=== PATIENT | male | born 1930 | race Caucasian/White ===

== ENCOUNTER 2018-06-20 14:17 | Outpatient (CLI) | payer MEDICARE, OTHER | END 2018-06-20 23:59 | disposition home or self-care (01) | LOC: CARD 14:17 | PROVIDERS: ATTEND Nurse Practitioner | DX: J44.9 Chronic obstructive pulmonary disease, unspecified (principal) | CPT/HCPCS: 94060; 94618; 94726; 94729 ==

== ENCOUNTER 2019-03-23 06:53 | Emergency (ER) | payer MEDICARE, OTHER ==
[~2019-03-23] VITALS: Ht 175.3 cm; Wt 65.0 kg
--- NOTE | 2019-03-23 07:23 | NUR ---
PT WITH C/O "TINGING" FEELING IN CHEST FOR APPROX 2 WEEKS, HAD GOTTON WORSE TODAY, PT DENIES SOB, TRAUMA. PT TO CARD MONITOR, BP, CONT PULSE OX, ER PROVIDER IN TO EVAL PT, ORDERS RECIEVED.
[2019-03-23 07:42] LABS: BASOPHILS # (AUTO) 0.06 x10^3/uL (0-0.1); BASOPHILS % (AUTO) 1 % (0-1); EOSINOPHILS # (AUTO) 0.41 x10^3/uL (0-0.4); EOSINOPHILS % (AUTO) 8 % (1-7); LYMPHOCYTES % (AUTO) 32 % (22-44); MD NO; MEAN CORPUSCULAR HGB CONC 33.2 g/dL (33.2-36.2); MEAN CORPUSCULAR VOLUME 108.4 fL (81-97); MEAN PLATELET VOLUME 7.8 fL (7.4-10.4); MONOCYTES # (AUTO) 0.61 x10^3/uL (0.2-0.8); MONOCYTES % (AUTO) 12 % (2-9); NEUTROPHILS # (AUTO) 2.41 x10^3/uL (1.8-6.8); NEUTROPHILS % (AUTO) 47 % (42-75); PLATELET COUNT 215 x10^3/uL (130-400); RED BLOOD COUNT 3.39 x10^6/uL (4.38-5.82); RED CELL DISTRIBUTION WIDTH 14.5 % (9.4-14.8)
[2019-03-23 07:54] LABS: ALBUMIN 2.3 g/dL (3.4-5.0); ANION GAP 5 mmol/L (5-15); CALCIUM 8.4 mg/dL (8.5-10.1); CHLORIDE 111 mmol/L (98-107); CREATININE 1.57 mg/dL (0.7-1.3)
[2019-03-23 07:57] LABS: TROPONIN I < 0.015 ng/mL (0.000-0.045)
--- NOTE | 2019-03-23 08:20 | NUR ---
ERMD IN TO EVAL PT, PT TO GO FOR ABDOMINAL US D/T HX OF AAA. NAD NOTED AT THIS TIME, SON AT BEDSIDE
[2019-03-23 08:47] VITALS: BP 146/83
--- NOTE | 2019-03-23 09:47 | NUR ---
ERMD IN TO UPDATE PT ON TEST RESULTS AND POC, PT TO BE DISCHARGED HOME.
== END 2019-03-23 10:18 | disposition home or self-care (01) ==
LOC: ED 09:45
DX: M94.0 Chondrocostal junction syndrome [Tietze] (principal); Z87.891 Personal history of nicotine dependence
CPT/HCPCS: 36415; 71045; 80048; 82040; 83880; 84484; 85025; 93005; 93979; 99284

== ENCOUNTER 2020-09-06 10:51 | Emergency (ER) | payer MEDICARE, OTHER ==
[~2020-09-06] VITALS: Ht 177.8 cm; Wt 68.0 kg
[~2020-09-06 10:51] MED LIST: ACET325T26 PO; ASPI81TA45 PO; GABA-826 PO
--- NOTE | 2020-09-06 11:06 | NUR ---
PT TO ROOM FROM TRIAGE, CONNECTED TO MONITORS. DAUGHTER AT BS. MAXIMILIAN. CALL LIGHT WITHIN REACH
--- NOTE | 2020-09-06 11:18 | NUR ---
PA AT BS
--- NOTE | 2020-09-06 11:47 | NUR ---
PT LAYING ON MAXIMILIAN CASTELLANOS/JENNA. DAUGHTER AT BS. CALL LIGHT WITHIN REACH
--- NOTE | 2020-09-06 12:38 | NUR ---
PT RESTING IN BED, VSS, DAUGHTER AT BEDSIDE, NO NEEDS AT THIS TIME AWAITIG US RESULTS.
--- NOTE | 2020-09-06 13:30 | NUR ---
PT RESTING ON JASMIN NADN/VSS. CALL LIGHT WITHIN REACH. DAUGHTER AT BS. NO NEEDS AT THIS TIME
--- NOTE | 2020-09-06 14:05 | NUR ---
PA AT BS
--- NOTE | 2020-09-06 14:10 | NUR ---
PT RESTING ON GURNEY, NADN/VSS. COMFORT MEASURES PROVIDED. DAUGHTER AT BS. CALL LIGHT WITHIN REACH
[2020-09-06 14:26] LABS: BASOPHILS % (AUTO) 1 % (0-1); EOSINOPHILS % (AUTO) 3 % (1-7); LYMPHOCYTES % (AUTO) 25 % (22-44); MEAN CORPUSCULAR HEMOGLOBIN 36.5 pg (27.5-34.5); MEAN CORPUSCULAR HGB CONC 34.4 g/dL (33.2-36.2); MEAN PLATELET VOLUME 7.6 fL (7.4-10.4); MONOCYTES % (AUTO) 10 % (2-9); NEUTROPHILS % (AUTO) 61 % (42-75); PLATELET COUNT 193 x10^3/uL (130-400); RED BLOOD COUNT 3.05 x10^6/uL (4.38-5.82); RED CELL DISTRIBUTION WIDTH 14.6 % (9.4-14.8)
[2020-09-06 14:31] LABS: ALBUMIN 1.9 g/dL (3.4-5.0); ANION GAP 6 mmol/L (5-15); CHLORIDE 115 mmol/L (98-107); CREATININE 1.36 mg/dL (0.7-1.3)
--- NOTE | 2020-09-06 14:34 | NUR ---
PT TO CT
--- NOTE | 2020-09-06 14:50 | NUR ---
PT BACK FROM CT. PT CONNECTED TO MONITORS, DAUGHTER AT BS
[2020-09-06 14:53] LABS: MICROSCOPIC NOT IND
--- NOTE | 2020-09-06 15:57 | NUR ---
THROUGHPUT: CALLED [facility] FOR [facility] ORDER, LEFT MESSAGE TO CALL BACK
--- NOTE | 2020-09-06 16:15 | NUR ---
THROUGHPUT: RECEIVED A CALL BACK FROM LAUREN AT [facility], WILL BE IN TO [facility], FAXED FACESHEET AND ORDER TO PATIENT
--- NOTE | 2020-09-06 16:25 | NUR ---
PT RESTING ON MAXIMILIAN CASTELLANOS/JENNA. CALL LIGHT WITHIN REACH. DAUGHTER AT BS. PT & DAUGHTER UPDATED ON POC.
--- NOTE | 2020-09-06 17:05 | NUR ---
[facility] AT FOR [facility] BRACE FITTING
[2020-09-06 17:31] VITALS: BP 119/68
--- NOTE | 2020-09-06 17:31 | NUR ---
PT TOLERATED [facility] BRACE FITTING WELL. NADN/VSS
--- NOTE | 2020-09-06 18:02 | NUR ---
Patient given discharge instructions and they have confirmed that they understand the instructions. Patient ambulatory with steady gait.
== END 2020-09-06 18:04 | disposition home or self-care (01) ==
LOC: ED 12:47
DX: S22.080A Wedge compression fracture of T11-T12 vertebra, initial encounter for closed fracture (principal); S32.010A Wedge compression fracture of first lumbar vertebra, initial encounter for closed fracture; S32.040A Wedge compression fracture of fourth lumbar vertebra, initial encounter for closed fracture; S39.012A Strain of muscle, fascia and tendon of lower back, initial encounter; J43.9 Emphysema, unspecified; J90 Pleural effusion, not elsewhere classified; D50.0 Iron deficiency anemia secondary to blood loss (chronic); Z87.891 Personal history of nicotine dependence; X58.XXXA Exposure to other specified factors, initial encounter; Y93.89 Activity, other specified; Y92.89 Other specified places as the place of occurrence of the external cause; Y99.8 Other external cause status
CPT/HCPCS: 36415; 72128; 72131; 80048; 81003; 82040; 85025; 93978; 99285